=== PATIENT | male | born 1965 | race Hispanic/Latino ===

== ENCOUNTER 2018-12-02 15:45 | Day surgery (SDC) | payer OTHER, SELFPAY ==
[~2018-12-02] VITALS: Ht 170.2 cm; Wt 71.7 kg
[~2018-12-02 15:45] MED LIST: AEC81 PO; ATOR40TA69 PO; GLIP5TAB11 PO; INSU3INS3 SQ; LISI2.5T2 PO; METF-444 PO; METO25 PO; TICA90TA PO
[2018-12-02 16:12] LABS: BASOPHILS % (AUTO) 0.5 % (0.0-5.0); EOSINOPHILS % (AUTO) 1.7 % (0.0-8.0); HEMATOCRIT 40.1 % (42-54); LYMPHOCYTES % (AUTO) 26.3 % (21.0-51.0); MEAN CORPUSCULAR HEMOGLOBIN 31.4 pg (27.0-33.0); MEAN CORPUSCULAR VOLUME 92.4 fL (79-99); NEUTROPHILS % (AUTO) 64.5 % (40.0-77.0); NUCLEATED RED BLOOD CELLS 0.1 % (0.0-0.19); PLATELET COUNT (AUTO) 234 K/uL (130-400); RED BLOOD CELL COUNT(AUTO) 4.34 MIL/uL (4.50-6.20); RED CELL DISTRIBUTION WIDTH 14.1 % (11.0-15.5); WHITE BLOOD COUNT (AUTO) 9.8 K/uL (4.8-10.8)
[2018-12-02 16:25] LABS: CREATININE 0.9 mg/dL (0.5-1.5); POTASSIUM 4.4 mmol/L (3.5-5.1)
[2018-12-02 16:27] LABS: ALBUMIN 3.5 g/dL (3.5-5.0); BILIRUBIN,TOTAL 0.3 mg/dL (0.2-1.0); TOTAL PROTEIN, SERUM 7.1 g/dL (6.0-8.3)
[2018-12-02 16:47] LABS: INR 0.95 (0.85-1.15); PARTIAL THROMBOPLASTIN TIME 28.4 SEC (26.3-35.5)
[2018-12-02] MEDS: SODIUM CHLORIDE 0.9% 1000ML 1,000 ML IV SCH (17:16)
[2018-12-02] MEDS ORDERED: MORPHINE SULFATE 4 MG/1ML SYG IV PRN (17:30)
[2018-12-02] MEDS: NITROGLYCERIN 1GM/1 INCH PACKET TD SCH (17:30)
[2018-12-02] MEDS ORDERED: HYDRALAZINE HCL 20 MG/ML VIAL IV PRN (17:30)
[2018-12-02 17:45] LABS: HEMOGLOBIN A1C 7.8 % (4.0-6.0)
[2018-12-02 18:34] LABS: TROPONIN I 0.06 ng/mL (0.00-0.06)
[2018-12-02] MEDS ORDERED: NITROGLYCERIN 1GM/1 INCH PACKET TD ONE (19:58)
[2018-12-02] MEDS ORDERED: ATORVASTATIN CALCIUM 40 MG TABLET PO SCH (21:00)
[2018-12-02] MEDS ORDERED: TICAGRELOR 90 MG TABLET PO SCH (21:00)
[2018-12-02] MEDS ORDERED: METOPROLOL TARTRATE 25 MG TAB PO SCH (21:00)
[2018-12-02] MEDS ORDERED: INSULIN GLARGINE 100 UNITS/ML 10 ML VIAL SQ SCH ×2 (21:00)
[2018-12-02 23:00] VITALS: BP 97/55
[2018-12-02] MEDS ORDERED: METOPROLOL TARTRATE 25 MG TAB ONE (23:21)
[2018-12-02] MEDS ORDERED: TICAGRELOR 90 MG TABLET ONE (23:22)
[2018-12-02] MEDS ORDERED: SODIUM CHLORIDE 0.9% 1000ML 0 ML IV ONE (23:25)
[2018-12-03] VITALS (9 sets, daily range): BP systolic 99–134; BP diastolic 60–81
[2018-12-03] MEDS: NITROGLYCERIN 1GM/1 INCH PACKET TD SCH (01:30)
[2018-12-03 02:29] LABS: TROPONIN I 0.06 ng/mL (0.00-0.06)
[2018-12-03] MEDS: SODIUM CHLORIDE 0.9% 1000ML 1,000 ML IV SCH (03:16)
[2018-12-03] MEDS ORDERED: INSULIN LISPRO 100 UNIT/ML 3ML SQ SCH (07:30)
[2018-12-03 08:47] LABS: TROPONIN I 0.07 ng/mL (0.00-0.06)
[2018-12-03 08:48] LABS: TRIGLYCERIDES 86 mg/dL (30-200)
[2018-12-03 08:49] LABS: CHOLESTEROL 97 mg/dL (<200); HDL CHOLESTEROL 28 mg/dL (29-71); LDL DIRECT 56 mg/dL (0-99)
[2018-12-03] MEDS ORDERED: PANTOPRAZOLE SODIUM 40 MG TABLET.DR PO SCH (09:00)
[2018-12-03] MEDS ORDERED: LISINOPRIL 2.5 MG TABLET PO SCH (09:00)
[2018-12-03] MEDS ORDERED: ENOXAPARIN SODIUM 40 MG/0.4 ML SYRINGE SQ SCH (09:00)
[2018-12-03] MEDS ORDERED: ASPIRIN 81 MG EC TAB PO SCH ×2 (09:00)
[2018-12-03] MEDS ORDERED: SODIUM CHLORIDE 0.9% 500ML 500 ML IV SCH (10:56)
[2018-12-03] MEDS ORDERED: BIVALIRUDIN 250 MG/VIAL IV ONE (13:46)
[2018-12-03] MEDS ORDERED: IOHEXOL 350 MG/ML 100ML INFUS..BTL IV ONE (13:46)
[2018-12-03] MEDS ORDERED: IOHEXOL-350 50ML VIAL IV ONE (13:46)
[2018-12-03] MEDS ORDERED: LIDOCAINE HCL 2% 20ML ONE (13:47)
[2018-12-03] MEDS ORDERED: MIDAZOLAM HCL 1 MG/ML 2ML VIAL ONE (14:46)
[2018-12-03] MEDS ORDERED: NITROGLYCERIN 5 MG/ML 10 ML VIAL IV ONE (14:49)
[2018-12-03] MEDS ORDERED: FENTANYL CITRATE PF 50 MCG/1 ML 2ML VIAL ONE (14:50)
[2018-12-03] MEDS ORDERED: ADENOSINE 90MG/30ML VIAL IV ONE (15:08)
[2018-12-03] MEDS ORDERED: HEPARIN SODIUM 1000UNIT/ML 10ML VIAL ONE (15:09)
--- NOTE | 2018-12-03 15:50 | NUR ---
DC Plan CM went down to discuss dc planning with patient. Patient currently in manager laboratory for [facility]. CM to revisit. CD
[2018-12-03] MEDS ORDERED: SODIUM CHLORIDE 0.9% 1000ML 1,000 ML IV SCH (16:17)
--- NOTE | 2018-12-03 18:00 | NUR ---
PT RECEIVED ON FLOOR FROM DAY SX, RECEIVED REPORT FROM CHRISTINA BERG, PATIENT STABLE AAO3, WNL, DSG TO GROIN INTACT, SOFT TO TOUCH, IV FLUIDS RUNNING ORDERED.
--- NOTE | 2018-12-04 09:35 | NUR ---
CALLED PT AT HOME TO GIVE CORRECT APPT TIME. SPOKE TO MR FOREMAN. PT DOING WELL AFTER DISCHARGE.
== END 2018-12-03 19:00 | disposition home or self-care (01) ==
LOC: EDH 15:45 → DAH 15:46 → EDHIP 17:44 → UNDOADMIN 17:44 → DAH 12-03 19:00
PROVIDERS: ATTEND Internal Medicine Cardiovascular Disease
DX: I25.110 Atherosclerotic heart disease of native coronary artery with unstable angina pectoris (principal); R07.9 Chest pain, unspecified; I21.9 Acute myocardial infarction, unspecified; E11.9 Type 2 diabetes mellitus without complications; I10 Essential (primary) hypertension; E78.5 Hyperlipidemia, unspecified; Z98.890 Other specified postprocedural states; Z87.891 Personal history of nicotine dependence; Z79.899 Other long term (current) drug therapy; Z79.4 Long term (current) use of insulin; Z79.84 Long term (current) use of oral hypoglycemic drugs; Z95.5 Presence of coronary angioplasty implant and graft; Z82.49 Family history of ischemic heart disease and other diseases of the circulatory system
CPT/HCPCS: 36415 ×2; 71045; 80053; 80061; 82550 ×3; 82948 ×3; 83036; 83874 ×3; 84484 ×4; 85025; 85610; 85730; 93005 ×2; 93306; 93458; 93571; 93572; 93971; C1760; C1769 ×2; C1887; C1894; J0153; J1644 ×2; J2250; J3010; J3490 ×2; Q9965 ×2; Q9967 ×2; 99156; 99157; G0378; J0583; J7030

== ENCOUNTER → 2022-12-24 | Outpatient (CLI) | payer OTHER ==
[~2022-12-24] MED LIST changes: +LISI2.5T13 PO; -LISI2.5T2 PO
== END | disposition home or self-care (01) ==
LOC: SHCH 14:01
PROVIDERS: ATTEND Internal Medicine Cardiovascular Disease
DX: I87.2 Venous insufficiency (chronic) (peripheral) (principal)
CPT/HCPCS: 93970

== ENCOUNTER 2023-05-20 05:43 | Day surgery (SDC) | payer OTHER ==
[2023-05-15 17:14] VITALS: BP 149/78
[2023-05-20] VITALS (9 sets, daily range): BP systolic 121–175; BP diastolic 71–86
[~2023-05-20] VITALS: Ht 170.2 cm; Wt 87.9 kg
[~2023-05-20 05:43] MED LIST changes: -ATOR40TA69 PO; +ATOR40TA71 PO; -GLIP5TAB11 PO; +INSU100I24 SQ; -INSU3INS3 SQ; -LISI2.5T13 PO; -METF-444 PO; -METO25 PO; +METO25TA6 PO; +PRIM250T24 PO; -TICA90TA PO
[2023-05-20] MEDS ORDERED: 0.9%NACL 1000ML 1,000 ML IV ONE (06:34)
[2023-05-20 06:59] LABS: BASOPHILS % (AUTO) 0.3 % (0.0-5.0); EOSINOPHILS % (AUTO) 1.2 % (0.0-8.0); HEMATOCRIT 40.3 % (42-54); LYMPHOCYTES % (AUTO) 24.2 % (21.0-51.0); MEAN CORPUSCULAR HEMOGLOBIN 32.6 pg (27.0-33.0); MEAN CORPUSCULAR VOLUME 93.3 fL (79-99); MONOCYTES % (AUTO) 8.5 % (3.0-13.0); NEUTROPHILS % (AUTO) 65.4 % (40.0-77.0); PLATELET COUNT (AUTO) 219 K/uL (130-400); RED BLOOD CELL COUNT(AUTO) 4.32 MIL/uL (4.50-6.20); RED CELL DISTRIBUTION WIDTH 11.9 % (11.0-15.5); WHITE BLOOD COUNT (AUTO) 7.3 K/uL (4.8-10.8)
[2023-05-20 07:08] LABS: POTASSIUM 4.1 mmol/L (3.5-5.1)
[2023-05-20 07:10] LABS: INR 0.93 (0.85-1.15); PROTHROMBIN TIME 9.9 SEC (9.6-11.6)
[2023-05-20] MEDS ORDERED: LIDOCAINE HCL 400MG/20ML VIAL ONE ×2 (07:11→08:04)
[2023-05-20 07:12] LABS: PARTIAL THROMBOPLASTIN TIME 26.1 SEC (26.3-35.5)
[2023-05-20] MEDS ORDERED: HEPARIN 10,000 UNIT/10ML (1,000 UNIT/ML) VIAL ONE (07:12)
[2023-05-20] MEDS ORDERED: IODIXANOL 320 MG/ML 100 ML VIAL ONE (07:12)
[2023-05-20] MEDS ORDERED: FENTANYL CITRATE PF 50 MCG/1 ML 2ML VIAL ONE (07:12)
[2023-05-20] MEDS ORDERED: MIDAZOLAM HCL 1 MG/ML 2ML VIAL ONE ×2 (07:12→07:46)
[2023-05-20] MEDS ORDERED: NITROGLYCERIN 50MG VIAL ONE (07:29)
[2023-05-20] MEDS ORDERED: CLOPIDOGREL 300MG TAB ONE (08:34)
[2023-05-20] MEDS ORDERED: ACETAMINOPHEN WITH CODEINE 1 TAB TAB PO PRN ×2 (09:00)
[2023-05-20] MEDS ORDERED: DEXTROSE 50%-WATER 50 ML DISP.SYRIN IV PRN (09:00)
[2023-05-20] MEDS ORDERED: GLUCAGON 1MG KIT 1 MG ML IM PRN (09:00)
[2023-05-20] MEDS ORDERED: 0.9%NACL 1000ML 1,000 ML IV SCH (09:00)
== END 2023-05-20 13:15 | disposition home or self-care (01) ==
LOC: DAH 05:43
PROVIDERS: ATTEND Internal Medicine Cardiovascular Disease
DX: I87.1 Compression of vein (principal); I87.2 Venous insufficiency (chronic) (peripheral); I25.10 Atherosclerotic heart disease of native coronary artery without angina pectoris; I10 Essential (primary) hypertension; E78.5 Hyperlipidemia, unspecified; E11.51 Type 2 diabetes mellitus with diabetic peripheral angiopathy without gangrene; I25.2 Old myocardial infarction; E66.9 Obesity, unspecified; F17.210 Nicotine dependence, cigarettes, uncomplicated; K21.9 Gastro-esophageal reflux disease without esophagitis; Z79.82 Long term (current) use of aspirin; Z79.01 Long term (current) use of anticoagulants; Z79.899 Other long term (current) drug therapy; Z98.890 Other specified postprocedural states; Z68.30 Body mass index [BMI] 30.0-30.9, adult; Z82.49 Family history of ischemic heart disease and other diseases of the circulatory system; Z83.3 Family history of diabetes mellitus
CPT/HCPCS: 71045; 93005; 37238; 37239; 36012; 75822; 93458; 37252; 37253 ×5; 80048; 85025; 85610; 85730; 82948 ×2; 36415; C1876 ×2; C1894 ×4; C1769 ×2; C1760; C1725; C1753; J3010; J3490 ×3; J7030; J1644 ×2; J2250 ×2; Q9967; A4215; A4222; A4221; A4663; A4216; A4606; A4223 ×3; 96360; 96361; 99156; 99157